=== PATIENT | male | born 1980 | race Caucasian/White ===

== ENCOUNTER 2017-04-08 14:31 | Emergency (ER) | payer OTHER ==
[~2017-04-08 14:31] MED LIST: ACETAMINOPHEN PO; ALBUTEROL 0.5ML INH; ALBUTEROL17 GM; BACTRIM DS TABL1 TA1 PO; ELIMITE60 G1 TOP; FLOVENT HFA12 GM INH; KEFLEX500 MG PO; NO MEDICATIONS; PHENERGAN PO; PREDNISONE PO; TYLENOL COLD SE1 TAB PO; VICODIN 5/500 T1 TAB PO; ZITHROMAX PO; [UNRECOGNIZED DRUG - OTHER]
== END 2017-04-08 15:43 | disposition home or self-care (01) ==
LOC: SED 14:31
DX: L03.113 Cellulitis of right upper limb (principal); R06.2 Wheezing; R03.0 Elevated blood-pressure reading, without diagnosis of hypertension; F32.9 Major depressive disorder, single episode, unspecified; F17.210 Nicotine dependence, cigarettes, uncomplicated
CPT/HCPCS: 94640; 99283